=== PATIENT | female | born 1960 | race Caucasian/White ===

== ENCOUNTER 2017-07-04 12:23 | Emergency (ER) | payer OTHER ==
[2017-07-04 12:55] VITALS: BP 130/83; PULSE 79; RESP 16; TEMP 98.4; O2SAT 95
[2017-07-04] MEDS ORDERED: RABIES VACC, HUMAN DIPLOID/PF 2.5 UNIT VIAL (RABAVERT) IM ONE (13:09)
--- NOTE | 2017-07-04 13:13 | EDPHY ---
H & P Time Seen by Provider: 07/04/17 13:09 HPI/ROS: CHIEF COMPLAINT: Rabies vaccine HISTORY OF PRESENT ILLNESS: Patient presents for her final immunization in the series is this is day 14. She got exposed to a skunk with an open wound on her toe that 2 dogs were playing with. This happened in [place]. REVIEW OF SYSTEMS: Asymptomatic PAST MEDICAL HISTORY: Negative Social history: Lives in [place], the remainder of the series was given in [facility]. General Appearance: Alert and conversant, cooperative. Emergency Department course/MDM: Patient will receive for final dose of rabies vaccine here. She is warned that if she does have a future rabies exposure she still needs 2 additional prophylactic post exposure vaccines. Smoking Status: Never smoked Constitutional: Initial Vital Signs Temperature (C) 36.9 C 07/04/17 12:53 Heart Rate 79 07/04/17 12:53 Respiratory Rate 16 07/04/17 12:53 Blood Pressure 130/83 H 07/04/17 12:53 O2 Sat (%) 95 07/04/17 12:53 O2 Delivery Mode Room Air Allergies/Adverse Reactions: epinephrine [Epinephrine] Allergy (Unknown, Verified 11/21/14 15:24) Anaphylaxis Home Medications: Medication Instructions Recorded Calcium Carbonate/Vitamin D3 600 mg PO BID 11/20/14 [Calcium 600-Vit D3 200 Tablet] Cholecalciferol Vit D3 [Vitamin D3 7,000 units PO DAILY 11/20/14 (*)] Cyanocobalamin [Vitamin B12 (*)] 500 mcg PO DAILY 11/20/14 Herbals/Supplements -Info Only 1 ea PO DAILY 11/20/14 Multivitamins [Multivitamin (*)] 2 each PO DAILY 11/20/14 Hydrocodone/APAP 5/325 [Vinton 1 - 2 tab PO Q4 PRN #30 tab 11/22/14 5/325 (*)] MDM/Departure - MDM Medications Given: Discontinued Medications Rabies Vaccine Human Diploid Cell (Rabavert) 2.5 unit IM .ONCE ONE Stop: 07/04/17 13:10 Last Admin: 07/04/17 13:14 Dose: 2.5 unit - Depart Disposition: Home, Routine, Self-Care Clinical Impression: Rabies, need for prophylactic vaccination against Condition: Good Instructions: Rabies Vaccine (ED) Referrals: Marietat Guillaume MD [Primary Care Provider] - As per Instructions
== END 2017-07-04 13:15 | disposition home or self-care (01) ==
DX: Z20.3 Contact with and (suspected) exposure to rabies (principal); Z23 Encounter for immunization

== ENCOUNTER → 2017-08-15 | Outpatient (CLI) | payer OTHER | LOC: FIMAGING 08:37 | PROVIDERS: ATTEND Internal Medicine Hematology & Oncology | DX: Z12.31 Encounter for screening mammogram for malignant neoplasm of breast (principal) | CPT/HCPCS: G0202 ==

== ENCOUNTER → 2018-01-11 | Outpatient (CLI) | payer OTHER | LOC: FIMAGING 09:29 | PROVIDERS: ATTEND Nurse Practitioner | DX: R22.41 Localized swelling, mass and lump, right lower limb (principal); Z85.42 Personal history of malignant neoplasm of other parts of uterus ==

== ENCOUNTER → 2018-06-27 | Outpatient (CLI) | payer OTHER | DX: Z12.31 Encounter for screening mammogram for malignant neoplasm of breast (principal) ==

== ENCOUNTER → 2018-08-10 | Outpatient (CLI) | payer OTHER | LOC: FIMAGING 14:39 | PROVIDERS: ATTEND Internal Medicine Hematology & Oncology | DX: R92.8 Other abnormal and inconclusive findings on diagnostic imaging of breast (principal); C54.1 Malignant neoplasm of endometrium ==

== ENCOUNTER → 2018-10-26 | Outpatient (CLI) | payer OTHER ==
[~2018-10-26] MED LIST: GADOBUTROL 10 ML VIAL IVP ONE
== END ==
LOC: FIMAGING 07:35
PROVIDERS: ATTEND Internal Medicine Hematology & Oncology
DX: N63.20 Unspecified lump in the left breast, unspecified quadrant (principal); Z85.42 Personal history of malignant neoplasm of other parts of uterus
CPT/HCPCS: A9585; C8908

== ENCOUNTER 2019-04-08 17:12 | Emergency (ER) | payer OTHER ==
[2019-04-08] MEDS ORDERED: NS 1,000 ML IV ONE (17:20)
[2019-04-08 17:39] LABS: PLATELET COUNT 309 10^3/uL (150-400)
--- NOTE | 2019-04-08 17:45 | EDPHY ---
H & P Time Seen by Provider: 04/08/19 17:19 HPI/ROS: HPI Palpitations. Chest tightness. 58-year-old female by private vehicle with her . This patient has a long history of SVT as well as mitral valve prolapse. She reports that she has had episodes of SVT occasionally since she was 11 years old. She has been down in [place] for the last 2 weeks. She returned home last night. She and her [place] [address] Today at 3:30 p.m. She started feeling palpitations with chest tightness. She reports that this usually resolves on its own. She tried several vagal maneuvers but could not get any resolution they then decided to come down to the [place] area from [place] thinking that the lower altitude would help her. Her symptoms persisted so she came to the emergency department. While in triage, the nurse had her bear down and hold her breath. She then converted to a sinus rhythm. On my evaluation she denies any symptoms. She describes her chest tightness as around her mid chest and back. She also had some mild shortness of breath associated with her palpitations. ROS: Constitutional: No fever, no chills. No weakness. Eyes: No discharge. No changes in vision. ENT: No sore throat. No nasal congestion or rhinorrhea. Respiratory: No cough. As above. Cardiac: As above. Gastrointestinal: No abdominal pain, no vomiting, no diarrhea. Genitourinary: No hematuria. No dysuria or increased frequency with urination. Musculoskeletal: No back pain. No neck pain. No myalgias or arthralgias. Skin: No rashes. Neurological: No headache. No focal weakness or altered sensation. Past medical history: Mitral valve prolapse, hysterectomy, history of SVT. She has seen [facility] in the past. Social history: Nonsmoker. Here with her . No alcohol. As above. Physical Exam: General Appearance: Alert, no distress. This patient is responding to questions appropriately and in full sentences. This patient appears well- hydrated and well-nourished. Eyes: Pupils equal and round no pallor or injection. No lid edema, erythema or injection. Respiratory: There are no retractions, lungs are clear to auscultation with good air movement bilaterally. Cardiovascular: Regular rate and rhythm. No murmur appreciated. Gastrointestinal: Abdomen is soft and nontender, no masses, bowel sounds normal. No focal tenderness at McBurney's point. No Fernando sign. Neurological: Motor sensory function is grossly intact. Cranial nerves are normal. Gait is normal. Skin: Warm and dry, no rashes. Musculoskeletal: Neck is supple and nontender. Extremities are symmetrical. All joints range without pain or impingement. Psychiatric: No agitation. No depression. Database: EKG: EKG time is 5:18 p.m.; EKG shows a narrow complex sinus tachycardia with ventricular rate of 105. The NV Interval is borderline prolonged. The QRS, QT intervals are within normal limits. Probable left atrial enlargement. There are no ST-T wave changes indicative of ischemic or injury pattern. No evidence of right heart strain. Interpreted by me. Imaging: Chest x-ray AP portable: The cardiac mediastinal silhouette is unremarkable. No evidence of infiltrate or pneumothorax. No acute cardiopulmonary disease process noted. Interpreted by me. Procedures: Emergency department course: Triage vital signs reviewed, she is mildly tachycardic. Mildly hypertensive. Vital signs are otherwise normal. She is afebrile. She came in with a rate initially of 220. Rhythm strip obtained. Classes narrow complex SVT morphology. IV was placed. She was placed on a youth nutritional monitor. As noted above SVT resolved after vagal maneuvers as described. She was started on IV normal saline with a L to be given over the next hour. 615 p.m., the patient was re-evaluated, resting comfortably at this time. We are currently awaiting results of TSH. Troponin is within normal limits. vehicle monitor technician shows a narrow complex sinus rhythm with ventricular rate of 97. At this time she feels asymptomatic. I discussed further observation in the emergency department but she is requesting discharge. She reports that she feels fine. She has no chest pain. No shortness of breath. Results of her emergency department workup were discussed with her and her . I discussed follow-up through her primary care physician or cupola operator. Vagal maneuvers were reviewed. Return to emergency department precautions discussed. All of her questions were answered. She was discharged from the emergency department in good condition with her . Differential Diagnosis: The differential diagnosis on this patient includes but is not limited to SVT. Ventricular tachycardia, atrial fibrillation with rapid ventricular response, pulmonary embolism, electrolyte abnormality, hyperthyroid state, acute coronary syndrome unlikely. This represents a partial list of diagnoses considered. These considerations are based on history, physical exam, past history, reassessment and diagnostic testing. Smoking Status: Never smoked Constitutional: Initial Vital Signs Heart Rate 220 H 04/08/19 17:18 Respiratory Rate 21 H 04/08/19 17:18 Blood Pressure 155/92 H 04/08/19 17:18 O2 Sat (%) 92 04/08/19 17:18 O2 Delivery Mode Room Air Allergies/Adverse Reactions: epinephrine [Epinephrine] Allergy (Unknown, Verified 11/21/14 15:24) Anaphylaxis Home Medications: Medication Instructions Recorded Multivitamins [Multivitamin (*)] 2 each PO DAILY 11/20/14 Medical Decision Making - Diagnostics Imaging Results: Imaging Impressions Chest X-Ray 04/08/19 17:21 Impression: 1. No acute pulmonary disease. 2. Consider chest two views when the patient's medical condition permits. - Data Points Laboratory Results: Laboratory Results 04/08/19 17:25 04/08/19 17:25 04/08/19 04/08/19 04/08/19 17:28 17:25 17:25 WBC RBC Hgb Hct MCV MCH MCHC RDW Plt Count MPV Neut % (Auto) Lymph % (Auto) Hawkins % (Auto) Eos % (Auto) Baso % (Auto) Nucleat RBC Rel Count Absolute Neuts (auto) Absolute Lymphs (auto) Absolute Monos (auto) Absolute Eos (auto) Absolute Basos (auto) Absolute Nucleated RBC Immature Gran % Immature Gran # PT 12.7 SEC SEC (12.0-15.0) INR 0.99 (0.83-1.16) APTT 69.5 SEC H SEC (23.0-38.0) Sodium 137 mEq/L mEq/L (135-145) Potassium 3.6 mEq/L mEq/L (3.5-5.2) Chloride 105 mEq/L mEq/L (97-110) Carbon Dioxide 21 mEq/l L mEq/l (22-31) Anion Gap 11 mEq/L mEq/L (6-14) BUN 15 mg/dL mg/dL (7-23) Creatinine 1.1 mg/dL H mg/dL (0.6-1.0) Estimated GFR 51 Glucose 283 mg/dL H mg/dL (70-100) Calcium 9.7 mg/dL mg/dL (8.5-10.4) POC Troponin I 0.03 ng/mL ng/mL (0.00-0.08) TSH 6.440 uIU/mL H uIU/mL (0.465-4.680) 04/08/19 17:25 WBC 11.58 10^3/uL H 10^3/uL (3.80-9.50) RBC 5.30 10^6/uL 10^6/uL (4.18-5.33) Hgb 14.6 g/dL g/dL (12.6-16.3) Hct 44.9 % % (38.0-47.0) MCV 84.7 fL fL (81.5-99.8) MCH 27.5 pg L pg (27.9-34.1) MCHC 32.5 g/dL g/dL (32.4-36.7) RDW 12.8 % % (11.5-15.2) Plt Count 309 10^3/uL 10^3/uL (150-400) MPV 9.7 fL fL (8.7-11.7) Neut % (Auto) 74.8 % H % (39.3-74.2) Lymph % (Auto) 20.1 % % (15.0-45.0) Hawkins % (Auto) 3.1 % L % (4.5-13.0) Eos % (Auto) 0.9 % % (0.6-7.6) Baso % (Auto) 0.6 % % (0.3-1.7) Nucleat RBC Rel Count 0.0 % % (0.0-0.2) Absolute Neuts (auto) 8.65 10^3/uL H 10^3/uL (1.70-6.50) Absolute Lymphs (auto) 2.33 10^3/uL 10^3/uL (1.00-3.00) Absolute Monos (auto) 0.36 10^3/uL 10^3/uL (0.30-0.80) Absolute Eos (auto) 0.11 10^3/uL 10^3/uL (0.03-0.40) Absolute Basos (auto) 0.07 10^3/uL 10^3/uL (0.02-0.10) Absolute Nucleated RBC 0.00 10^3/uL 10^3/uL (0-0.01) Immature Gran % 0.5 % % (0.0-1.1) Immature Gran # 0.06 10^3/uL 10^3/uL (0.00-0.10) PT INR APTT Sodium Potassium Chloride Carbon Dioxide Anion Gap BUN Creatinine Estimated GFR Glucose Calcium POC Troponin I TSH Medications Given: Discontinued Medications Sodium Chloride (Ns) 1,000 mls @ 0 mls/hr IV EDNOW ONE; Wide Open PRN Reason: Protocol Stop: 04/08/19 17:21 Last Admin: 04/08/19 17:28 Dose: 1,000 mls Point of Care Test Results: Chemistry 04/08/19 17:28 POC Troponin I 0.03 ng/mL ng/mL (0.00-0.08) Departure - Departure Disposition: Home, Routine, Self-Care Clinical Impression: SVT (supraventricular tachycardia) Condition: Good Instructions: Supraventricular Tachycardia (ED) Additional Instructions: Read and follow provided instructions. You should follow-up with your cupola operator this week for re-evaluation as it has been sometime since you have seen this physician. Keep yourself well hydrated. Avoid any strenuous physical activity for the next few days. Have your primary care physician evaluate your blood work here in the emergency department. I would like your kidney function to be rechecked. Return to the emergency department for return of symptoms, chest pain, shortness of breath or other serious concerns. Referrals: Marietta Guillaume MD [Primary Care Provider] - As per Instructions [facility] [Provider Group] - As per Instructions
[2019-04-08 18:11] LABS: INR 0.99 (0.83-1.16); PROTIME(PATIENT) 12.7 SEC (12.0-15.0)
[2019-04-08 18:23] VITALS: BP 119/99
--- NOTE | 2019-04-09 21:10 | CPEKG ---
Test Reason : OPEN Blood Pressure : / mmHG Vent. Rate : 105 BPM Atrial Rate : 105 BPM P-R Int : 205 ms QRS Dur : 086 ms QT Int : 348 ms P-R-T Axes : 055 062 042 degrees QTc Int : 461 ms Sinus tachycardia Prolonged WV interval Probable left atrial enlargement Confirmed by Trae Gaines [id number]) on 04/09/2019 9:10:17 PM Referred By: Uzair Díaz Confirmed By:Trae Gaines
== END 2019-04-08 18:36 | disposition home or self-care (01) ==
DX: I47.1 Supraventricular tachycardia (principal); E86.9 Volume depletion, unspecified
CPT/HCPCS: 84484-ER